=== PATIENT | male | born 1965 | race American Indian/Alaskan Native ===

== ENCOUNTER 2020-12-04 14:28 | Outpatient (CLI) | payer OTHER ==
[2020-12-04] MEDS ORDERED: ALBUTEROL 2.5 MG/3 ML NEBU IH ONE (16:17)
== END 2020-12-04 14:29 | disposition home or self-care (01) ==
LOC: PF 14:28
PROVIDERS: ATTEND Internal Medicine
DX: J44.9 Chronic obstructive pulmonary disease, unspecified (principal); Z87.891 Personal history of nicotine dependence
CPT/HCPCS: 94640; A9270